=== PATIENT | female | born 1955 | race Caucasian/White ===

== ENCOUNTER 2018-01-10 13:28 | Outpatient (CLI) | payer MEDICARE ==
[2018-01-10] MEDS ORDERED: Gadobenate Dimeglumine 529 MG/1 ML (20ML VIAL) ONE (13:44)
--- NOTE | 2018-01-10 16:19 | MRI ---
BRAIN MRI WITH AND WITHOUT CONTRAST: 01/10/18 INDICATION: Multiple sclerosis. FINDINGS: Ventricular system is normal in size. There is no midline shift or acute territorial infarction. Ther e are numerous periventricular, bilateral white matter signal abnormalities of each cerebral hemisphe re without associated, pathologic enhancement. Skull base flow voids are maintained. IMPRESSION: Numerous periventricular white matter signal abnormalities in keeping with provided clinical history of multiple sclerosis. There is no active demyelination evident. POS: [facility]
--- NOTE | 2018-01-10 16:24 | MRI ---
CERVICAL SPINE MRI WITH AND WITHOUT CONTRAST: CLINICAL HISTORY: Multiple sclerosis. COMPARISON: No prior imaging comparison available. FINDINGS: There is patient motion throughout the exam, which degrades image quality and does limit the assessme nt. Multilevel degenerative changes at the cervical spine are present, without significant cord defo rmity or high grade central canal stenosis. The neural foramina are not reliably assessed due to the degree of patient motion. No pathologic expansion of the cervical spinal cord or evidence of pathol ogic intramedullary enhancement. IMPRESSION: No definitive evidence of demyelinating plaque within the cervical spine, within limitations, given t he persistent, significant degree of patient motion. POS: [facility]
== END 2018-01-10 13:29 | disposition home or self-care (01) ==
LOC: TBSIIMAG 13:28
DX: G35 Multiple sclerosis (principal); R93.8 Abnormal findings on diagnostic imaging of other specified body structures
CPT/HCPCS: 70553; 72156; 82565; A9579

== ENCOUNTER 2018-05-31 08:30 | Outpatient (CLI) | payer MEDICARE ==
--- NOTE | 2018-05-31 11:50 | CT ---
CT CHEST WITHOUT CONTRAST: Date: 05/31/18 PROVIDED CLINICAL HISTORY: History of smoking, low dose screening. FINDINGS: No comparisons. Vascular calcification, including coronary calcium, is demonstrated. The heart, pericardium, and grea t vessels and suboptimally evaluated in the absence of IV contrast, but demonstrate an otherwise unre markable unenhanced CT appearance. There is no evidence for thoracic lymph node enlargement with limitations due to lack of IV contrast. The airway appears patent and of normal caliber. The lungs are free of suspicious nodule. Mild emphysematous changes are seen. Small cluster of tiny, noncalcified nodules seen at the right lung apex. No pleural fluid or pneumothorax apparent. The visualized portions of the upper abdomen demonstrate an unremarkable unenhanced CT appearance wit h the exception of vascular calcification. The osseous structures demonstrate no concerning lytic or blastic lesions. IMPRESSION: 1. Lung-RADS Category 2 - Benign. Continue annual screening. 2. Vascular calcification, including coronary calcium. POS: [facility]
== END 2018-05-31 08:31 | disposition home or self-care (01) ==
LOC: CT 08:30
PROVIDERS: ATTEND Internal Medicine
DX: Z13.6 Encounter for screening for cardiovascular disorders (principal); Z87.891 Personal history of nicotine dependence; I25.10 Atherosclerotic heart disease of native coronary artery without angina pectoris
CPT/HCPCS: G0297

== ENCOUNTER 2019-08-21 12:56 | Outpatient (CLI) | payer MEDICARE ==
--- NOTE | 2019-08-21 13:11 | RAD ---
EXAM: Chest 2 views: HISTORY: Dyspnea COMPARISON: None. FINDINGS: There is a normal-sized cardiomediastinal silhouette. There is no evidence of consolidation, mass, or pleural effusion. The bones are unremarkable. IMPRESSION: No evidence of acute cardiopulmonary disease
== END 2019-08-21 12:57 | disposition home or self-care (01) ==
LOC: RAD 12:56
PROVIDERS: ATTEND Internal Medicine Pulmonary Disease
DX: R06.00 Dyspnea, unspecified (principal)
CPT/HCPCS: 71046

== ENCOUNTER 2022-02-15 10:36 | Outpatient (CLI) | payer MEDICARE | END 2022-02-15 10:37 | disposition home or self-care (01) | LOC: RAD 10:36 | PROVIDERS: ATTEND Internal Medicine Critical Care Medicine | DX: R06.00 Dyspnea, unspecified (principal) | CPT/HCPCS: 71046 ==

== ENCOUNTER 2023-02-15 09:31 | Outpatient (CLI) | payer OTHER | END 2023-02-15 09:32 | disposition home or self-care (01) | LOC: RAD 09:31 | PROVIDERS: ATTEND Internal Medicine Critical Care Medicine | DX: R06.00 Dyspnea, unspecified (principal) | CPT/HCPCS: 71046 ==